=== PATIENT | female | born 2005 | race Caucasian/White ===

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

== ENCOUNTER 2024-05-08 16:23 | Outpatient (CLI) | payer BC, SELFPAY ==
[2024-05-09 18:09] LABS: HBs Antibody, Quant >1000.0 mIU/mL (See Note); Hepatitis B Surface Ab Positive (See Note)
[2024-05-10 09:43] LABS: Measles IgG Antibody Positive (See Note); Mumps Antibody IgG Positive (See Note); Rubella IgG Ab (UVM) Positive (See Note)
== END 2024-05-08 16:24 | disposition home or self-care (01) ==
LOC: LBO 16:26
PROVIDERS: PCP Nurse Practitioner Pediatrics; Visit Provider Nurse Practitioner Pediatrics
DX: Z78.9 Other specified health status (principal)
CPT/HCPCS: 36415; 86706; 86735; 86762; 86765

== ENCOUNTER 2024-10-03 05:06 | Emergency (ER) | payer BC, SELFPAY ==
--- NOTE | 2024-10-03 05:09 | ED.GENADUL_ITS ---
Discharge Plan Disposition Patient Disposition: Home Condition: Improving Discharge Details Clinical Impression: Migraine headache Primary Care Provider: Edwin Cosby ED Provider: Yusuf Patterson Home Meds and New Rx's Prescriptions: Continued (DME) BreatheRite MDI Spacer Spacer See Rx Instructions .ROUTE .MEDSUPPLY Qty: 1 0RF Rx Instructions: As directed rizatriptan 10 mg tablet See Rx Instructions PO .COMPLEX Qty: 10 3RF Rx Instructions: take 1 tab at onset of headache; if no relief may repeat 1 tab after at least 2 hrs; max = 2 tabs/24 hr PO propranolol 40 mg tablet 40 mg PO BID Qty: 180 3RF indomethacin 25 mg capsule 25 mg PO Q8H PRN Qty: 20 3RF Rx Instructions: administer with food or milk norgestimate-ethinyl estradiol [Sprintec (28)] 0.25-35 mg-mcg tablet 1 tab PO DAILY Qty: 84 4RF Rx Instructions: Take 1 tab daily, skip last week (placebo pills) for continuous method sertraline [Zoloft] 25 mg tablet 75 mg PO DAILY Discharge Instructions Additional Instructions: You were seen in the ED for persistent migraine headache with vomiting. You responded very well to a dose of IV prochlorperazine. Would rest for today. You may follow-up with primary care or neurology as needed. Return to ED for any severe worsening headache, neurologic change, persistent vomiting, other concerns. HPI General Mode of arrival: ambulatory . Date/Time Provider Initiated Documentation: 10/03/24 05:09 . Limitations to Documentation: no limitations . Information obtained by: patient, RN notes reviewed and old records reviewed . HPI Narrative: Patient presents to ED with complaint of migraine headache with associated nausea and vomiting. Patient reports history of migraines. This headache started out as a typical migraine with temporal pain. However it has not responded to her typical medications and is now frontal, under the eyes and into the back. She has had nausea and vomiting and is really been unable to keep anything down since this afternoon. She has episodes of standing up and getting lightheaded and faint. She was not ill prior to this. She denies fever, URI symptoms. She has no abdominal pain. She has no neurologic change. She last took indomethacin 2 to 3 hours ago, has maxed out on her rizatriptan and is also taking a total of 4 g of acetaminophen in the last 24 hours. Related Data Home Medications ?Medication ?Instructions ?Recorded ?Confirmed inhalational spacing device #1 ea 01/18/20 10/03/24 (BreatheRite MDI Spacer) norgestimate 0.25 mg-ethinyl 1 tab PO DAILY #84 tabs 04/10/24 10/03/24 estradiol 35 mcg tablet (Sprintec (28)) indomethacin 25 mg capsule 25 mg PO Q8H PRN migraine #20 caps 09/13/24 10/03/24 propranolol 40 mg tablet 40 mg PO BID #180 tabs 09/13/24 10/03/24 rizatriptan 10 mg tablet See Rx Instructions PO .COMPLEX 09/13/24 10/03/24 #10 tabs sertraline 25 mg tablet (Zoloft) 75 mg PO DAILY 10/03/24 10/03/24 Previous Rx's ?Medication ?Instructions ?Recorded inhalational spacing device #1 ea 01/18/20 (BreatheRite MDI Spacer) norgestimate 0.25 mg-ethinyl 1 tab PO DAILY #84 tabs 04/10/24 estradiol 35 mcg tablet (Sprintec (28)) indomethacin 25 mg capsule 25 mg PO Q8H PRN migraine #20 caps 09/13/24 propranolol 40 mg tablet 40 mg PO BID #180 tabs 09/13/24 rizatriptan 10 mg tablet See Rx Instructions PO .COMPLEX 09/13/24 #10 tabs Allergies Allergy/AdvReac Type Severity Reaction Status Date / Time Penicillins AdvReac Mild VOMITING Verified 09/13/24 08:29 General KARMEN: 4 Review of Systems Narrative: Per HPI Exam Narrative Exam Narrative: Const: WDWN female in NAD. VS per triage. HEENT: NC/AT. Normal facial exam. Eyes: PERRL and EOMI. Neck: Supple. Trachea midline. Lungs: Normal respiratory effort. Lungs are clear. Cor: RRR without murmur. Good radial pulses. GI: Soft/ND/NT. Neuro: A+O x 3. Normal speech, mentation, gait. Cranial nerves II - XII grossly intact. No gross motor or sensory deficit. Ext: No C/C/E. Medical Decision Making Patient presenting to ED with headache that started out as a typical migraine but has not responded to her regular medications and is now more diffuse involving frontal and posterior in addition to nausea and vomiting. She is neurologically intact. This was not a sudden onset headache. She has some photosensitivity. She has maxed out on her home medications for migraines. She has had some orthostatic symptoms likely from the vomiting. I am not concerned for this being subarachnoid hemorrhage or bleed. Will place IV and give fluids, prochlorperazine and reevaluate. Patient with resolution of headache as well as nausea after prochlorperazine. Will finish her liter of fluid and plan discharge home. May follow-up with primary care and/or neurology as needed. Return precautions provided. Medical Records Medical records reviewed: Yes I reviewed the patient's medical records. Medical records narrative: neuro notes PFSH All Active Problems (Updated 10/03/24 @ 06:34 by Yusuf Patterson MD) Migraine headache (Chronic) Family history of type 1 diabetes mellitus (Acute) Family history of endometriosis (Acute) Antibody response examination (Acute) Migraine headache without aura (Acute) Irregular intermenstrual bleeding (Acute) Medical History Mild intermittent asthma Migraines Surgical History H/O wisdom tooth extraction 03/2019 Family History Father Ingrown toenail with infections, requiring partial nail removal Mother No problems noted. Other Family history of type 1 diabetes mellitus Social History Smoking/Tobacco Use Status: Never Second Hand Exposure: No Smoking risk assessment performed?: Yes Alcohol Intake: never Drug use: Never Adopted: No Foster care: No Housing: house Education Level: college Details: [employer] current occupation: Student Pets and animals: Yes (3 CATS 2 DOGS ) Pets and animals: cat(s) Current gender identity: female Do you feel safe at home: Yes Do you feel safe in your relationship?: Yes
[2024-10-03 05:10] VITALS: BP 178/106; PULSE 104; RESP 16; TEMP 37; O2SAT 98
[2024-10-03 05:17] VITALS: BP 178/106; PULSE 104; RESP 16; TEMP 37; O2SAT 98
[2024-10-03] MEDS: Normal Saline 1,000 ML 1000 ML IV (05:27)
[2024-10-03] MEDS: Prochlorperazine 10 MG/2 ML VIAL IVP (05:27)
== END 2024-10-03 06:48 | disposition home or self-care (01) ==
PROVIDERS: Emergency Provider Emergency Medicine; PCP Nurse Practitioner Pediatrics
DX: G43.909 Migraine, unspecified, not intractable, without status migrainosus (principal)
CPT/HCPCS: 96361; 96374; 99284; 99283; J0780

== ENCOUNTER 2024-10-08 16:56 | Emergency (ER) | payer BC, SELFPAY ==
[2024-10-08] VITALS (61 sets, daily range): BP systolic 119–162; BP diastolic 72–107; PULSE 65–104; RESP 12–26; TEMP 36.7; O2SAT 95–99
--- NOTE | 2024-10-08 17:00 | RT.EKG_ITS ---
APPROVED REPORT Exam: Resting ECG Reason for Exam: syncope Patient Location: E HR:93 bpm ECG Measurements Heart Rate 93 AXIS OH 132 P 57 QRSd 93 QRS 65 QT 357 T -33 QTc 443 Conclusion Sinus rhythm...normal P axis, V-rate 60- [address] segment or T wave abnormalities to suggest occlusive [place]
--- NOTE | 2024-10-08 17:46 | W.ED.GENAD ---
Discharge Plan Disposition Patient Disposition: Transfer-Acute Inpatient Care Specific Acute Inpt Facility: [facility] Condition: Serious Discharge Details Chief Complaint: Dizzy/Sync Clinical Impression: Abdominal pain Primary Care Provider: Edwin Cosby ED Provider: Jane Jimenez Home Meds and New Rx's Prescriptions: No Action (DME) BreatheRite MDI Spacer Spacer See Rx Instructions .ROUTE .MEDSUPPLY Qty: 1 0RF Rx Instructions: As directed rizatriptan 10 mg tablet See Rx Instructions PO .COMPLEX Qty: 10 3RF Rx Instructions: take 1 tab at onset of headache; if no relief may repeat 1 tab after at least 2 hrs; max = 2 tabs/24 hr PO propranolol 40 mg tablet 40 mg PO BID Qty: 180 3RF indomethacin 25 mg capsule 25 mg PO Q8H PRN Qty: 20 3RF Rx Instructions: administer with food or milk norgestimate-ethinyl estradiol [Sprintec (28)] 0.25-35 mg-mcg tablet 1 tab PO DAILY Qty: 84 4RF Rx Instructions: Take 1 tab daily, skip last week (placebo pills) for continuous method sertraline [Zoloft] 25 mg tablet 75 mg PO DAILY HPI General Mode of arrival: ambulatory. Date/Time Provider Initiated Documentation: 10/08/24 17:05. Limitations to Documentation: no limitations. Information obtained by: patient and family. HPI Narrative: 19yo F with hx migraines presenting for abdominal pain and syncope. Yesterday evening had mild periumbilical abd pain with associated vomiting, 3-4 times, non-bloody non bilious. Today abdominal pain worsened and is more severe, sharp, radiating to her right lower quadrant. Diarrhea today (nonbloody nonbilious), vomiting has slowed down. While at school around 330pm had stabbing periumblical pain, stood up to go to the bathroom, and felt her vision and hearing start to fade. Lowered herself to the floor where she lost consciousness. Not sure how long. Did not strike her head. No fevers, chills, rash, dysuria, hematuria, vaginal discharge, or other concerns. Related Data Home Medications ?Medication ?Instructions ?Recorded ?Confirmed inhalational spacing device #1 ea 01/18/20 10/08/24 (BreatheRite MDI Spacer) norgestimate 0.25 mg-ethinyl 1 tab PO DAILY #84 tabs 04/10/24 10/08/24 estradiol 35 mcg tablet (Sprintec (28)) indomethacin 25 mg capsule 25 mg PO Q8H PRN migraine #20 caps 09/13/24 10/08/24 propranolol 40 mg tablet 40 mg PO BID #180 tabs 09/13/24 10/08/24 rizatriptan 10 mg tablet See Rx Instructions PO .COMPLEX 09/13/24 10/08/24 #10 tabs sertraline 25 mg tablet (Zoloft) 75 mg PO DAILY 10/03/24 10/08/24 Previous Rx's ?Medication ?Instructions ?Recorded inhalational spacing device #1 ea 01/18/20 (BreatheRite MDI Spacer) norgestimate 0.25 mg-ethinyl 1 tab PO DAILY #84 tabs 04/10/24 estradiol 35 mcg tablet (Sprintec (28)) indomethacin 25 mg capsule 25 mg PO Q8H PRN migraine #20 caps 09/13/24 propranolol 40 mg tablet 40 mg PO BID #180 tabs 09/13/24 rizatriptan 10 mg tablet See Rx Instructions PO .COMPLEX 09/13/24 #10 tabs Allergies Allergy/AdvReac Type Severity Reaction Status Date / Time Penicillins AdvReac Mild VOMITING Verified 10/08/24 17:02 General Stated Complaint: Dizzy/Sync KARMEN: 3 Review of Systems Narrative: see HPI Exam Narrative Exam Narrative: General: Alert, well appearing, well nourished, in no acute distress. Head: Normocephalic, atraumatic Neck: Trachea midline, ?Neck supple. ENT: ?MMM.? No oropharygeal lesions or exudate. Cardiac: ?RRR, no murmurs appreciated Resp: No respiratory distress. CTAB. Abd: ?Soft, non-distended, mild periumbilical and RLQ TTP with no rebound or guarding. : ?No suprapubic tenderness. No CVA tenderness. Extremities: ?No deformities.? No peripheral edema. Neurologic: GCS 15. ? Moves all extremities freely against gravity Course Vital Signs Vital signs: Vital Signs Temperature 36.7 C 10/08/24 16:57 Pulse 89 10/08/24 16:57 Respiratory Rate 14 10/08/24 16:57 Blood Pressure 162/107 H 10/08/24 16:57 Pulse Oximetry 98 10/08/24 16:57 Temperature 36.7 C 10/08/24 16:57 Temperature Source Oral 10/08/24 16:57 Pulse 89 10/08/24 16:57 Respiratory Rate 14 10/08/24 16:57 Blood Pressure 162/107 H 10/08/24 16:57 Blood Pressure Position Sitting 10/08/24 16:57 Pulse Oximetry 98 10/08/24 16:57 Oxygen Delivery Method Room Air 10/08/24 16:57 Oxygen Flow Rate 0 10/08/24 16:57 Pain Level 8 10/08/24 16:57 Medical Decision Making 19yo F with hx migraines presenting for abdominal pain and syncope. Yesterday evening had mild periumbilical abd pain with associated vomiting; today abdominal pain worsened and is more severe, sharp, radiating to her right lower quadrant now also with diarrhea today. Had episode of severe stabbing periumbilical pain at school, stood up, and felt her vision and hearing fade out; sat down and then lost consciousness. No chest pain or shortness of breath at any point. Vital signs reassuring on arrival, on exam she does have periumbilical and RLQ TTP with no rebound or guarding. Orthostatic vital signs borderline positive (increase in HR by 29 BPM from supine to standing with no change in BP). Plan for labs and CT imaging, must also consider ovatian/pelvic pathology and potential need for US if CT negative (would likely require transfer as no US here overnight). Will give IV tylenol, toradol, zofran for symptoms, IVFB. Labs reviewed as below, CBC reassuring with no leukocytosis or anemia, CMP with no actionable abnormalities, Mg normal, lipase normal (unlikely pancreaitits), lactate normal. negative. UA not infected. CT abd pelvis independently reviewed; no obstruction or free fluid on my view, radiology read below with prominent mesenteric nodes On reassessment pt reports nausea has improved but pain has increased, now severe /10. Remains TTP of RLQ with no rebound or guarding. Given IV morphine. May be mesenteric adenitis however must also consider ovarian pathology including TOA and intermittent torsion. 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 Discuss[facility] with [facility]; accepted ED to ED under Dr. No for US. Awaiting transport. Imaging Data Radiologic Study: Imaging: CT Scan Radiologist's impression: IMPRESSION: Prominent mesenteric nodes, see above comments. Lab Data Lab results reviewed: Yes I reviewed the patient's lab results. Labs: Laboratory Tests Range/Units 10/08/24 10/08/24 18:00 18:08 WBC (4.4-10.8) 10^3/uL 6.01 RBC (3.93-5.22) 10^6/uL 5.36 H Hgb (11.2-15.7) g/dL 14.6 Hct (36.0-46.0) % 43.7 MCV (80-95) fL 82 MCH (27.0-33.0) pg 27.2 MCHC (32.0-36.0) % 33.4 RDW (11.7-14.6) % 12.1 Plt Count (130-400) 10^3/uL 258 MPV (8.0-11.0) fL 9.6 Immature Gran % % 0.3 Neutrophils % % 59.8 Lymphocytes % % 31.4 Monocytes % % 7.7 Eosinophils % % 0.3 Basophils % % 0.5 Nucleated RBC % (0.0-0.3) % 0.0 Absolute Neutrophils (1.2-6.7) 10^3/uL 3.59 Absolute Lymphocytes (1.2-3.4) 10^3/uL 1.89 Absolute Monocytes (0.1-0.8) 10^3/uL 0.46 Absolute Eosinophils (0.0-0.7) 10^3/uL 0.02 Absolute Basophils (0.0-0.2) 10^3/uL 0.03 VBG Lactate (0.6-1.4) mmol/L 1.0 Sodium (136-145) mmol/L 142 Potassium (3.5-5.1) mmol/L 3.4 L Chloride (98-107) mmol/L 103 Carbon Dioxide (21.0-32.0) mmol/L 25.4 Anion Gap (3-11) mmol/L 13.6 H BUN (7-18) mg/dL 9 Creatinine (0.55-1.02) mg/dL 0.7 Est GFR (CKD-EPI 2020) (mL/min/1.73m2) 126.90 Glucose (74-106) mg/dL 101 Calcium (8.5-10.1) mg/dL 9.1 Total Bilirubin (0.2-1.0) mg/dL 0.38 AST (15-37) U/L 26 ALT (14-59) U/L 22 Alkaline Phosphatase (46-116) U/L 58 Total Protein (6.4-8.2) g/dL 7.5 Albumin (3.4-5.0) g/dL 3.6 Lipase (<78) U/L 44 Beta HCG, Quant (1-3) mIU/mL 1 Urine Color (Yellow) Dark Yellow Urine Clarity (Clear) Clear Urine pH (5-8) 6.0 Ur Specific Dutton (1.005-1.025) 1.020 Urine Protein (Neg-Trace) mg/dL 30 H Urine Ketones (Negative) mg/dL 15 H Urine Blood (Negative) Negative Urine Nitrite (Negative) Negative Urine Bilirubin (Negative) Small H Urine Urobilinogen (Up to 0.2) mg/dL 2.0 H Ur Leukocyte Esterase (Negative) Negative Urine RBC (0-2) HPF Negative Urine WBC (0-5) HPF Negative Ur Epithelial Cells (Negative) HPF Moderate Urine Crystals (Negative) HPF Negative Urine Bacteria (Negative) HPF Moderate Urine Casts (Negative) LPF Negative Urine Mucus (Negative) Heavy Urine Other (Negative) Negative Ur Culture Indicated? No/Sq. Contamination Urine Glucose (Negative) mg/dL Negative Quality:SDOH Health Related Social Needs: No Data to Display PFSH All Active Problems (Updated 10/08/24 @ 22:38 by Jane Jimenez MD) Abdominal pain (Acute) Migraine headache (Chronic) Family history of type 1 diabetes mellitus (Acute) Family history of endometriosis (Acute) Antibody response examination (Acute) Migraine headache without aura (Acute) Irregular intermenstrual bleeding (Acute) Medical History Mild intermittent asthma Migraines Surgical History H/O wisdom tooth extraction 03/2019 Family History Father Ingrown toenail with infections, requiring partial nail removal Mother No problems noted. Other Family history of type 1 diabetes mellitus Social History Smoking/Tobacco Use Status: Never Second Hand Exposure: No Smoking risk assessment performed?: Yes Alcohol Intake: never Drug use: Never Substance use type: does not use Adopted: No Foster care: No Housing: house Education Level: college Details: 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
[2024-10-08 18:12] LABS: Abs Immature Grans 0.02 10^3/uL (0.0-0.06); Absolute Basophil Count 0.03 10^3/uL (0.0-0.2); Absolute Eosinophil Count 0.02 10^3/uL (0.0-0.7); Absolute Lymphocyte Count 1.89 10^3/uL (1.2-3.4); Absolute Monocyte Count 0.46 10^3/uL (0.1-0.8); Absolute Neutrophil Count 3.59 10^3/uL (1.2-6.7); Basophils % 0.5 %; Eosinophils % 0.3 %; HCT 43.7 % (36.0-46.0); HGB 14.6 g/dL (11.2-15.7); Immature Grans % 0.3 %; Lymphocytes % 31.4 %; MCH 27.2 pg (27.0-33.0); MCHC 33.4 % (32.0-36.0); MCV 82 fL (80-95); MPV 9.6 fL (8.0-11.0); Monocytes % 7.7 %; Neutrophils % 59.8 %; Platelet Count 258 10^3/uL (130-400); RBC 5.36 10^6/uL (3.93-5.22); RDW 12.1 % (11.7-14.6); WBC 6.01 10^3/uL (4.4-10.8)
[2024-10-08] MEDS: ACETAMINOPHEN 1,000 MG/100 ML BAG 400 MG IVPB (18:15)
[2024-10-08] MEDS: Ketorolac 15 MG/ML VIAL IVP (18:15)
[2024-10-08] MEDS: Ondansetron 4 MG/2 ML VIAL IVP (18:15)
[2024-10-08 18:27] LABS: ALT 22 U/L (14-59); AST 26 U/L (15-37); Albumin 3.6 g/dL (3.4-5.0); Alkaline Phosphatase 58 U/L (46-116); Anion Gap 13.6 mmol/L (3-11); BUN 9 mg/dL (7-18); Bilirubin, Total 0.38 mg/dL (0.2-1.0); CO2 25.4 mmol/L (21.0-32.0); CREATININE 0.7 mg/dL (0.55-1.02); Calcium 9.1 mg/dL (8.5-10.1); Chloride 103 mmol/L (98-107); Glucose 101 mg/dL (74-106); HCG Quant, Pregnancy 1 mIU/mL (1-3); Potassium 3.4 mmol/L (3.5-5.1); Sodium 142 mmol/L (136-145); Total Protein 7.5 g/dL (6.4-8.2)
[2024-10-08 18:32] LABS: Bilirubin Small (Negative); Blood Negative (Negative); Clarity Clear (Clear); Glucose Negative (Negative); Ketones 15 mg/dL (Negative); Leukocyte Esterase Negative (Negative); Nitrite Negative (Negative)
[2024-10-08 18:39] LABS: Lipase 44 U/L (<78)
[2024-10-08 18:40] LABS: Bacteria Moderate HPF (Negative); C & S Indicated? No/Sq. Contamination; Casts Negative LPF (Negative); Crystals Negative HPF (Negative); Epithelial Cells Moderate HPF (Negative); Mucus Heavy (Negative); Other Cells Negative (Negative); RBC Negative HPF (0-2); WBC Negative HPF (0-5)
[2024-10-08] MEDS: Omnipaque 350 MG/ML 100 ML BTL IJ (19:44)
[2024-10-08] MEDS: Normal Saline - Diluent 50 ML VIAL IJ (19:46)
--- NOTE | 2024-10-08 19:50 | DI.CT_ITS ---
Exam(s) CT ABDOMEN PELVIS W EXAM: CT ABDOMEN PELVIS W CLINICAL HISTORY: periumbilical RLQ pain, syncope. TECHNIQUE: Imaging Protocol: Axial computed tomography images with coronal and sagittal reformatted images were created and reviewed CONTRAST MATERIAL: Intravenous: Omnipaque 350 Contrast volume:100 ml Oral: no COMPARISON: CT CT ABDOMEN PELVIS W from 04/07/2021 FINDINGS: ABDOMEN and PELVIS: Lung Bases: No acute findings. Liver: Normal density. No suspicious mass. Gallbladder and biliary tract: No radiodense calculus. No wall thickening or pericholecystic fluid. No biliary dilation. Pancreas: Normal density. No abnormal calcifications or inflammatory process. No evidence of mass. Spleen: Normal. Kidneys: Normal size, contour and axis. No radiodense stones. No obstructive uropathy. No suspicious masses seen. Adrenal glands: No masses seen. Vasculature: Abdominal aorta non-dilated. Soft tissues: Unremarkable. Bladder: No gross wall thickening. No calculi.No focal mass. Bowel: No obstruction. No bowel wall thickening. Appendix normal. Peritoneal cavity: No ascites. No focal collection. No mesenteric inflammatory response. No free air . Bones: Unremarkable for age. Reproductive organs: Unremarkable. Lymph nodes: Multiple enlarged mesenteric lymph nodes which could indicate mesenteric adenitis. IMPRESSION:: Multiple enlarged mesenteric lymph nodes could indicate mesenteric adenitis. Appendix is normal. No inflammatory changes of the small or large bowel are visible. RADIATION DOSE DELIVERED: 421.5mGy.cm Total DLP DATA REPOSITORY: All CT scans at this facility are submitted to the National Radiology Data Registry (NRDR) Dose Index Registry (DIR) with the [employer] (ACR). RADIATION OPTIMIZATION: All CT scans at this facility use at least one of these dose optimization te chniques: automated exposure control; mA and/or kV adjustment per patient size (includes targeted exa ms where dose is matched to clinical indication); or iterative reconstruction.
[2024-10-08] MEDS: Normal Saline 1,000 ML 1000 ML IV (20:20)
--- NOTE | 2024-10-08 21:12 | DI.VRAD_ITS ---
PROCEDURE INFORMATION: Exam: CT Abdomen And Pelvis With Contrast Exam date and time: 10/08/2024 7:41 PM Age: 19 years old Clinical indication: Other: Periumbilical \T\ rlq pain, syncope TECHNIQUE: Imaging protocol: Computed tomography of the abdomen and pelvis with contrast. Contrast material: OMNIPAQUE 350; Contrast volume: 75 ml; Contrast route: INTRAVENOUS (IV); COMPARISON: CT ABDOMEN PELVIS W 04/07/2021 5:59 PM FINDINGS: Liver: Normal. No mass. Gallbladder and biliary ducts: Normal. No calcified stones. No ductal dilation. Pancreas: Normal. No ductal dilation. Spleen: Normal. No splenomegaly. Adrenal glands: Normal. No mass. Kidneys and ureters: Normal. No hydronephrosis. Stomach and bowel: Unremarkable. No obstruction. No mucosal thickening. Appendix: No evidence of appendicitis. Intraperitoneal space: Unremarkable. No free air. No significant fluid collection. Vasculature: Unremarkable. No abdominal aortic aneurysm. Lymph nodes: Prominent lymph nodes at the small bowel mesentery and right lower quadrant. These may be reactive, but an infectious, or inflammatory process such as mesenteric adenitis cannot be excluded. Correlate clinically. Urinary bladder: Unremarkable as visualized. Reproductive: Unremarkable as visualized. Bones/joints: Unremarkable. No acute fracture. Soft tissues: Unremarkable. IMPRESSION: Prominent mesenteric nodes, see above comments. Dictated and Authenticated by: Jose Rodriguez MD. Ordering:JORJE Lara MD
[2024-10-08] MEDS: MORPHine 4 MG/ML SYR IVP (22:01)
== END 2024-10-08 23:03 | disposition short-term general hospital (02) ==
PROVIDERS: Emergency Provider Student in an Organized Health Care Education/Training Program; PCP Nurse Practitioner Pediatrics
DX: R55 Syncope and collapse (principal); R10.32 Left lower quadrant pain; R11.10 Vomiting, unspecified
CPT/HCPCS: 80053; 81025; 83690; 93005; 96361; 96374; 96375; 99285; 74177; 81003; 81015; 83605; 84702; 85025; 93010; J0131; J1885; J2270; J2405; J3490

== ENCOUNTER 2025-01-23 15:52 | Outpatient (REF) | payer BC, SELFPAY ==
--- NOTE | 2025-01-23 16:00 | PAPFT_PTH ---
PATIENT: Leilani Corona LOC: [facility] U#:[id number] AGE/SX: 20/F ROOM: RE01/23/[address]: Jyoti Brooks MD : 2005 BED: DIS: 01/23/2025 SPEC #: [id number] RECD: 01/23/25 17:35 STATUS: GLORIA RERaymundo #: [id number] AZAR: 01/23/25 16:[address]: Jyoti Broosk DEPT: [facility] Cytology RECD BY: Katelyn Aquino ENTERED: 01/23/25 17:35 SP TYPE: PAPFT GAYLE DR: Edwin Cosby NP Tissues: 1 - CX/ENDOCX FOR PAP SMEARS Procedures: PAP THIN PREP/[facility] Screening Comments: [id number] (CHLAMYDIA/GC)
[2025-01-24 13:03] LABS: Chlamydia Result Negative (Negative); GC Result Negative (Negative)
== END 2025-01-23 15:53 | disposition home or self-care (01) ==
LOC: LBN 15:52
PROVIDERS: PCP Nurse Practitioner Pediatrics; Visit Provider Obstetrics & Gynecology
DX: Z12.4 Encounter for screening for malignant neoplasm of cervix (principal)
CPT/HCPCS: 87491; 87591; 88142

== ENCOUNTER 2025-02-05 14:46 | Outpatient (CLI) | payer BC, SELFPAY ==
[2025-02-06 09:29] LABS: HBs Antibody, Quant >1000.0 mIU/mL (See Note); Hepatitis B Surface Ab Positive (See Note)
[2025-02-06 10:33] LABS: Varicella IgG Antibody Negative (See Note)
[2025-02-06 10:38] LABS: Syphilis Serology (RPR) Negative (Negative)
[2025-02-06 10:40] LABS: HIV-1/2 Ag & Ab Screen Negative (Negative)
[2025-02-06 12:54] LABS: HBs Antibody, Qual Positive (See Note); HBs Antibody, Quant >1000.0 mIU/mL (See Note); Hepatitis B Core Antibody Negative (Negative); Hepatitis B surface Ag Negative (Negative); Hepatitis C Ab w Rflx HCV PCR Negative (Negative)
== END 2025-02-05 14:47 | disposition home or self-care (01) ==
LOC: LBO 14:46
PROVIDERS: Nurse Practitioner Family; PCP Nurse Practitioner Pediatrics; Visit Provider Obstetrics & Gynecology
DX: Z11.3 Encounter for screening for infections with a predominantly sexual mode of transmission (principal); Z01.84 Encounter for antibody response examination
CPT/HCPCS: 36415; 86704; 86706; 86787; 86803; 87340; 87389; 86592

== ENCOUNTER 2025-04-30 11:56 | Outpatient (CLI) | payer BC, SELFPAY ==
[2025-04-30 12:27] LABS: Abs Immature Grans 0.02 10^3/uL (0.0-0.06); HCT 42.7 % (36.0-46.0); HGB 14.4 g/dL (11.2-15.7); Immature Grans % 0.2 %; MCH 27.5 pg (27.0-33.0); MCHC 33.7 % (32.0-36.0); MCV 82 fL (80-95); MPV 10.1 fL (8.0-11.0); Platelet Count 316 10^3/uL (130-400); RBC 5.24 10^6/uL (3.93-5.22); RDW 11.9 % (11.7-14.6); RDW-SD 35.4 fL; WBC 8.70 10^3/uL (4.4-10.8)
[2025-04-30 12:36] LABS: Mono Screening Negative (Negative)
[2025-05-03 14:09] LABS: B. miyamotoi PCR Negative (Negative); Babesia divergens/MO-1 Negative (Negative); Ehrlichia muris eauclairensis Negative (Negative)
== END 2025-04-30 11:57 | disposition home or self-care (01) ==
LOC: LBO 11:56
PROVIDERS: PCP Nurse Practitioner Pediatrics; Visit Provider Pediatrics
DX: R51.9 Headache, unspecified (principal)
CPT/HCPCS: 36415; 87798; 85025; 86308